=== PATIENT | male | born 1975 | race Caucasian/White ===

== ENCOUNTER 2023-11-20 15:03 | Emergency (ER) | payer OTHER, SELFPAY ==
[2023-11-20 15:04] VITALS: BP 125/58; PULSE 96; RESP 20; TEMP 36.4; O2SAT 96; BMI 29.1
[2023-11-20 15:55] LABS: Absolute Lymphocyte Count 2.07 X10^3/uL (0.83-4.51); Absolute Neutrophil Count 7.2 X10^3/uL (2.0-7.7); Basophil# 0.08 X10^3/uL; Basophil% 0.8 % (0-1); Eosinophil# 0.53 X10^3/uL; Hematocrit 26.9 % (40-54); Hemoglobin 8.2 g/dL (13.0-16.5); Lymphocyte # 2.07 X10^3/ul (0.83-4.51); Lymphocyte % 19.5 % (19-41); Mean Corp Hgb Conc 30.5 g/dL (32-36); Mean Corpuscular Hgb 24.6 pg (27.0-32.0); Mean Corpuscular Volume 80.8 fL (80-94); Mean Platelet Vol. 9.6 fl (6.2-12.0); Monocyte# 0.72 X10^3/uL; Monocyte% 6.8 % (0-10); NRBC Flagged by Analyzer 0 % (0-5); Neutrophil # 7.19 X10^3/uL (2.7-7.7); Neutrophil % 67.4 % (47-70); Platelet Count 418 K/mm3 (150-450); RBC Distribution Width CV 18.3 % (11.6-14.6); RBC Distribution Width SD 53.1 fl (35.1-43.9); Red Blood Count 3.33 M/mm3 (4.6-6.2); White Blood Count 10.6 K/mm3 (4.4-11.0)
[2023-11-20 16:18] LABS: ALB/GLOB Ratio 0.8 RATIO (0.9-2.4); AST(SGOT) 10 U/L (15-37); Alanine Aminotransfer ALT/SGPT 18 U/L (16-61); Alkaline Phosphatase 70 U/L (45-117); Anion Gap 8 (5-15); BUN 18 mg/dL (7-18); Calcium,Total 8.8 mg/dL (8.5-10.1); Chloride 104 mmol/L (98-107); Creatinine, Serum 0.78 mg/dL (0.70-1.30); EST Glomerular Filtration Rate 111 mL/min (>60); Est Glom Filt Rate - Afr Amer 135 mL/min (>60); Estimated Creatinine Clearance 129.29 ml/min; Globulin 3.7 g/dL (2.2-4.2); Glucose 121 mg/dL (74-106); Potassium 3.7 mmol/L (3.5-5.1); Protein, Total 6.7 g/dL (6.4-8.2); Sodium Level 138 mmol/L (136-145)
[2023-11-20 17:04] VITALS: PULSE 89; RESP 16; O2SAT 97
[2023-11-20 17:26] LABS: Lipase 25 U/L (13-75)
[2023-11-20 17:38] LABS: Mucous, Urine 0 SEEN /hpf (<or=2+)
[2023-11-20 17:40] LABS: Color, Urine Straw (Yellow); Glucose, Dipstick Normal (Normal); Ketone-Dipstick 5 mg/dl (Negative); Leukocyte Esterase-Dipstick Negative /ul (Negative); Nitrite-Dipstick Negative (Negative); Occult Blood-Urine 25 /ul (Negative); Protein-Dipstick 15 mg/dl (Negative); Urine Bilirubin Dipstick Negative (Negative); Urine Clarity Clear (Clear); Urine Urobilinogen Normal (Normal)
[2023-11-20] MEDS: 0.9% Normal Saline (1000mL) 1,000 ML 200 ML IV (17:49)
[2023-11-20] MEDS: Acetaminophen 325 MG Tablet 650 MG PO (17:49)
--- NOTE | 2023-11-20 17:51 | CT_ITS ---
EXAM: CT ABDOMEN AND PELVIS WITH INTRAVENOUS CONTRAST CLINICAL INDICATION: abdominal pain, prior CT with duodenal colonic TECHNIQUE: Helically acquired images were obtained of the abdomen and pelvis with intravenous contrast. This CT exam was performed using one or more of the following dose reduction techniques: automated exposure control, adjustment of the mA and/or kV according to patient size, and/or use of iterative reconstruction technique. CONTRAST: Oral and amp; IV Gastrografin and amp; 100mL Isovue-370 COMPARISON: No relevant prior studies available. FINDINGS: LOWER THORAX: Unremarkable. Lung bases are clear. No cardiomegaly. No significant pericardial effusion. ABDOMEN: LIVER: Unremarkable. Homogeneous. No focal mass. GALLBLADDER AND BILE DUCTS: Unremarkable. No calcified gallstones. No gallbladder distention or wall edema. No intra- or extrahepatic biliary ductal dilation. PANCREAS: Unremarkable. No focal cystic or solid mass. SPLEEN: Unremarkable. Normal size without focal cystic or solid mass. ADRENALS: Unremarkable. No nodules. KIDNEYS AND URETERS: There is a 1.3 cm stone in the right renal pelvis. There is mild right-sided foraminal stenosis. Normal renal size and position. No hydronephrosis. STOMACH AND BOWEL: There is marked inflammation and thickening of the wall of the descending duodenum. 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 There is also possible there is an underlying mass involves. There is no free air identified. No stomach or bowel distention. PELVIS: APPENDIX: No evidence of acute appendicitis. BLADDER: Unremarkable. REPRODUCTIVE: Unremarkable as visualized. No mass. ABDOMEN and PELVIS: INTRAPERITONEAL SPACE: See above. BONES/JOINTS: See above. SOFT TISSUES: Unremarkable. No discrete abdominal or pelvic wall hernia. VASCULATURE: Unremarkable. Abdominal aorta is non-dilated. LYMPH NODES: Unremarkable. No enlarged lymph nodes. CT/Abdomen/Pelvis WITH Contrast IMPRESSION: 1. Inflammation and thickening the wall of the descending duodenum. The inflamed duodenum abuts against the adjacent hepatic flexure of the colon with an apparent duodenal colic fistula. Underlying mass lesion is also a possibility. There is no free air identified. Further evaluation with either upper endoscopy or colonoscopy is recommended. 2. Obstruction right collecting system due to a 1.3 cm stone in the right renal pelvis. There is right-sided hydronephrosis. Electronically Signed: Armani Goldberg MD at 20:22 EDT ,
[2023-11-20 17:59] LABS: Erythrocyte Sedimentation Rate 29 mm/hr (0-20)
[2023-11-20 18:08] LABS: Bacteria 2+ /hpf (None Seen); Red Blood Cells-Urine 0-5 SEEN /hpf (0-5); Renal Epithelial Cells 0-5 SEEN /hpf (0-5); Squamous Epithelial Cells - UA 0-5 SEEN /hpf (0-5); White Blood Cells 0-5 SEEN /hpf (0-5)
--- NOTE | 2023-11-20 19:54 | ED.VIS.GI ---
HPI HPI - GI History of Present Illness Chief Complaint: Abd Pain Informant: patient Narrative Narrative: Patient is a 48-year-old male with history of hypertension and acc-[id number] diabetes mellitus presenting with abdominal discomfort, nausea, vomiting and diarrhea. Patient states had a cholecystectomy last month with Dr. Shipley at [facility]. He states after that he had issues of abdominal pain and had CT on 10/26 and 10/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 Patient brought in the CT report. Patient did not follow-up and is not entirely clear why. He states the surgeon states that that was too much for him to handle. Patient states he is doing okay for the past 2 weeks and having decreased bowel movements and been more gassy. Yesterday he had a go-cart and then afterwards had an episode of vomiting around 1 PM. Throughout the day today, he has had belching that has had a sulfur smell. He later then had a bowel movement that felt like sulfur. He has been very gassy. Notes his subsequent gas and bowel movements were not sulfur smelling. Denies any fever or chills. Has had some mild lower abdominal pain that radiates to his back. States he has been taking Tylenol and ibuprofen for the past few days for his back pain. This seems to help. Notes that he will like he has heartburn and took Maalox for that which also helped. No other complaints or concerns reported at this time [facility] Medical History Diabetes HTN (hypertension) Umbilical hernia Fistula Home Medications ?Medication ?Instructions ?Recorded ?Last Taken ?Type aspirin 81 mg tablet,delayed 81 mg PO DAILY 11/20/23 11/19/23 History release (Adult Aspirin Regimen) lisinopril 10 mg tablet 10 mg PO DAILY 11/20/23 11/20/23 History metformin 1,000 mg tablet 500 mg PO BID 11/20/23 11/20/23 History Allergy/AdvReac Type Severity Reaction Status Date / Time No Known Allergies Allergy Verified 11/20/23 15:06 Surgical History Hx of cholecystectomy Social History household members: family housing: house Smoking Status: Current every day smoker tobacco type: cigarettes ROS ROS ED Constitutional Constitutional ED: Denies chills or fever(s) Gastrointestinal Gastrointestinal: Reports abdominal pain, diarrhea, nausea and vomiting; Denies constipation or melena Genitourinary Genitourinary ED: Denies dysuria or urinary frequency Musculoskeletal Musculoskeletal: Reports back pain; Denies arthralgias Integumentary Denies rash Neurologic Neurologic: Denies headache(s) Hematologic/Lymphatic Hematologic/Lymphatic: Denies easy bleeding or easy bruising EXAM Physical Exam Const Vital Signs: 11/20/23 15:04 11/20/23 17:04 11/20/23 20:01 Temperature 97.6 F L Temperature Source Temporal Pulse Rate 96 89 73 Respiratory Rate 20 H 16 18 Blood Pressure 125/58 H 131/67 H Blood Pressure Mean 80 88 Pulse Ox 96 97 97 Oxygen Delivery Method Room Air Room Air 11/20/23 22:05 Temperature Temperature Source Pulse Rate 67 Respiratory Rate 18 Blood Pressure 128/72 H Blood Pressure Mean 90 Pulse Ox 98 Oxygen Delivery Method Room Air Positive well nourished and well developed General Appearance ED: well developed and NAD HEENT Reports moist mucous membranes Neck supple Resp normal respiratory effort and clear to auscultation bilaterally Cardio regular rate and regular rhythm GI non-distended GI Narrative: Healing laparoscopic surgical incision sites very mild tenderness in the lower abdomen. No specific tenderness in the right upper quadrant or upper abdomen. Auscultation: normoactive bowel sounds Palpation: soft and tender; Negative for guarding, rigid or rebound tenderness present Back/Spine no CVA tenderness Extremity full ROM Neuro Sensorium / Orientation: alert, oriented to person, oriented to place and oriented to time Motor Exam: Negative for general weakness Psych mental status grossly normal and thought process normal Skin Skin Narrative: Surgical incisions of the abdomen, no signs of secondary infection or drainage MDM MDM MDM Narrative Medical decision making narrative: Patient evaluated for episode of nausea, vomiting and diarrhea as well as some worsening right back pain. Patient points to his right CVA area as the area of pain but it is not reproducible. Patient had outpatient CT recently that showed duodenal colonic fistula but it does not seem to have been referred or worked up further. Spoke with surgery on-call, Dr. Bhat, he recommends CT with p.o. contrast. This is performed and obtain labs including inflammatory markers. Patient has microcytic anemia of uncertain origin although concern is he could have bleeding in his GI track/neoplastic process. White blood cell count is normal. ESR and CRP are mildly elevated. CMP otherwise largely normal. Urine culture sent however I suspect is contaminated as there is 2+ bacteria but 0-5 squamous epithelial cells and 0-5 renal epithelial cells with no leukocyte esterase or significant white blood cells. CT does in fact show inflammation and thickening of the wall of the descending duodenum blood what looks to be fistula. In addition there is a 1.3 cm stone of the right renal pelvis. I suspect this is the cause of his back pain. We do not currently have urology coverage and surgery feels that this mass/fistula needs a higher level of care than we can provide. Patient will be transferred to [facility]. Case discussed with surgery on-call, Dr. Campbell and he patient will go to the ER for further evaluation and final admission. Patient is agreeable this plan of care. Patient now resting comfortably. Patient informed of findings. Lab Data Attestation: I reviewed the patient's lab results. Labs: Laboratory Results - last 24 hr 11/20/23 11/20/23 11/20/23 15:30 15:50 17:34 WBC 10.6 RBC 3.33 L Hgb 8.2 L Hct 26.9 L MCV 80.8 MCH 24.6 L MCHC 30.5 L RDW Std Deviation 53.1 H RDW Coeff of Brenden 18.3 H Plt Count 418 MPV 9.6 Immature Gran % (Auto) 0.500 Neut % (Auto) 67.4 Lymph % (Auto) 19.5 Harmon % (Auto) 6.8 Eos % (Auto) 5.0 Baso % (Auto) 0.8 Absolute Neuts (auto) 7.2 Absolute Lymphs (auto) 2.07 Nucleated RBC % 0 ESR 29 H Sodium 138 Potassium 3.7 Chloride 104 Carbon Dioxide 26.0 Anion Gap 8 BUN 18 Creatinine 0.78 Estim Creat Clear Calc 129.29 Est GFR (MDRD) Af Amer 135 Est GFR (MDRD) Non-Af 111 BUN/Creatinine Ratio 23.0 H Glucose 121 H Calcium 8.8 Total Bilirubin 0.30 AST 10 L ALT 18 Alkaline Phosphatase 70 C-React Prot Ext Range 21.40 H Total Protein 6.7 Albumin 3.0 L Globulin 3.7 Albumin/Globulin Ratio 0.8 L Lipase 25 Urine Color Straw Urine Clarity Clear Urine pH 6.0 Ur Specific Emmet 1.010 Urine Protein 15 H Urine Glucose (UA) Normal Urine Ketones 5 H Urine Occult Blood 25 H Urine Nitrite Negative Urine Bilirubin Negative Urine Urobilinogen Normal Ur Leukocyte Esterase Negative Urine RBC 0-5 SEEN Urine WBC 0-5 SEEN Ur Squamous Epith Cells 0-5 SEEN Ur Renal Epithelial Cell 0-5 SEEN Urine Bacteria 2+ Urine Mucus 0 SEEN Radiography Diagnostic Testing: Clinical Impression(s) from Imaging Studies Abdomen/Pelvis CT 11/20/23 17:51 IMPRESSION: 1. Inflammation and thickening the wall of the descending duodenum. The inflamed duodenum abuts against the adjacent hepatic flexure of the colon with an apparent duodenal colic fistula. Underlying mass lesion is also a possibility. There is no free air identified. Further evaluation with either upper endoscopy or colonoscopy is recommended. 2. Obstruction right collecting system due to a 1.3 cm stone in the right renal pelvis. There is right-sided hydronephrosis. Electronically Signed: Armani Goldberg MD at 20:22 EDT , Management Discussion w/another healthcare provider: Electrician Second Discharge Plan Triage Chief Complaint: Abd Pain ED Provider: Dhara Lozano Dx/Rx/DC Orders Clinical Impression: Stone in renal pelvis, Colonic fistula, Anemia Prescriptions: No Action metformin 1,000 mg tablet 500 mg PO BID Patient Comments: JUST CUT DOSAGE BACK TO 1/2 TABLET TWICE DAILY lisinopril 10 mg tablet 10 mg PO DAILY aspirin [Adult Aspirin Regimen] 81 mg tablet,delayed release (DR/EC) 81 mg PO DAILY Primary Care Provider: Shawna Mccormick Referrals: Shawna Mccormick MD [Primary Care Provider] - Print Language: Upper Sorbian Disposition Disposition: Acute Care Hospital Discharge Location: [facility]
[2023-11-20 20:01] VITALS: BP 131/67; PULSE 73; RESP 18; O2SAT 97
[2023-11-20 22:05] VITALS: BP 128/72; PULSE 67; RESP 18; O2SAT 98
[2023-11-20 23:20] VITALS: BP 140/84; PULSE 82; RESP 18; O2SAT 98
[2023-11-21 00:40] VITALS: BP 140/84; PULSE 82; RESP 18; TEMP 36.6; O2SAT 98
== END 2023-11-21 00:45 | disposition short-term general hospital (02) ==
PROVIDERS: Emergency Provider Emergency Medicine; PCP Student in an Organized Health Care Education/Training Program; Visit Provider Emergency Medicine
DX: N13.2 Hydronephrosis with renal and ureteral calculous obstruction (principal); E11.9 Type 2 diabetes mellitus without complications; K63.2 Fistula of intestine; D64.9 Anemia, unspecified; I10 Essential (primary) hypertension; F17.210 Nicotine dependence, cigarettes, uncomplicated; Z90.49 Acquired absence of other specified parts of digestive tract; Z79.82 Long term (current) use of aspirin; Z79.84 Long term (current) use of oral hypoglycemic drugs; Z79.899 Other long term (current) drug therapy
CPT/HCPCS: 74177; 80053; 81001; 83690; 85025; 85652; 86140; 87077; 87086; 87088; 96360; 96361; 99284; J7030; Q9967; A4216

== ENCOUNTER → 2024-01-12 | Outpatient (CLI) | payer OTHER, SELFPAY ==
--- NOTE | 2024-01-12 18:00 | CT_ITS ---
EXAM: CT ABDOMEN AND PELVIS WITH INTRAVENOUS CONTRAST CLINICAL INDICATION: IV and p.o. contrast; abd pain, colon ca TECHNIQUE: Helically acquired images were obtained of the abdomen and pelvis with intravenous contrast. This CT exam was performed using one or more of the following dose reduction techniques: automated exposure control, adjustment of the mA and/or kV according to patient size, and/or use of iterative reconstruction technique. CONTRAST: Oral and amp;amp; IV Gastrografin and amp;amp; 100mL Isovue-370 COMPARISON: No relevant prior studies available. FINDINGS: LOWER THORAX: Unremarkable. Lung bases are clear. No cardiomegaly. No significant pericardial effusion. ABDOMEN: LIVER: There is narrowing of the lumen of the hepatic flecture with an apparent soft tissue mass suspicious for malignancy and measures roughly 4.9 x 5.3 cm. This abuts against the descending portion of the duodenum. There is no perforation or free air. Liver is diffusely decreased in attenuation compatible with fatty infiltration. GALLBLADDER AND BILE DUCTS: Unremarkable. No calcified gallstones. No gallbladder distention or wall edema. No intra- or extrahepatic biliary ductal dilation. PANCREAS: Unremarkable. No focal cystic or solid mass. SPLEEN: Unremarkable. Normal size without focal cystic or solid mass. ADRENALS: Unremarkable. No nodules. KIDNEYS AND URETERS: Unremarkable. Normal renal size and position. No hydronephrosis. STOMACH AND BOWEL: There are dilated bowel which may represent an ileus or developing obstruction. PELVIS: APPENDIX: No evidence of acute appendicitis. BLADDER: Unremarkable. REPRODUCTIVE: Unremarkable as visualized. No mass. ABDOMEN and PELVIS: INTRAPERITONEAL SPACE: Unremarkable. No ascites or other fluid collection. No free air. BONES/JOINTS: Unremarkable. No suspicious lytic or blastic abnormality. SOFT TISSUES: Unremarkable. No discrete abdominal or pelvic wall hernia. VASCULATURE: Unremarkable. Abdominal aorta is non-dilated. LYMPH NODES: Unremarkable. No enlarged lymph nodes. CT/Abdomen/Pelvis WITH Contrast IMPRESSION: 1. Narrowing of the bowel lumen with a soft tissue mass in the hepatic flexure of the colon compatible with malignancy. Further evaluation with colonoscopy may beneficial. 2. Dilated fluid-filled loops of bowel proximally which may represent an ileus or developing obstruction. Electronically Signed: Armani Goldberg MD at 19:16 EDT ,
== END | disposition home or self-care (01) ==
LOC: CT 18:00
PROVIDERS: PCP Student in an Organized Health Care Education/Training Program; Visit Provider Nurse Practitioner Family
DX: C18.2 Malignant neoplasm of ascending colon (principal); R10.9 Unspecified abdominal pain
CPT/HCPCS: 74177; Q9967; A4216

== ENCOUNTER 2024-02-15 20:43 | Observation (INO) | payer OTHER, SELFPAY ==
[2024-02-15 20:45] VITALS: BP 90/72; PULSE 111; RESP 18; TEMP 36.6; O2SAT 98; BMI 23.3
--- NOTE | 2024-02-15 22:17 | CT_ITS ---
EXAM: CT ABDOMEN AND PELVIS WITH INTRAVENOUS CONTRAST CLINICAL INDICATION: nausea, emesis, known colon cancer TECHNIQUE: Helically acquired images were obtained of the abdomen and pelvis with intravenous contrast. This CT exam was performed using one or more of the following dose reduction techniques: automated exposure control, adjustment of the mA and/or kV according to patient size, and/or use of iterative reconstruction technique. CONTRAST: IV 75mL Isovue-370 RADIATION DOSE: CTDIvol = 15.79 mGy, DLP = 842.61 mGy-cm COMPARISON: CT abdomen pelvis 01/12/2024 FINDINGS: LOWER THORAX: Tiny pleural effusions. No cardiomegaly. ABDOMEN: LIVER: Fatty infiltration of the liver. GALLBLADDER AND BILE DUCTS: Unremarkable. No calcified gallstones. No gallbladder distention or wall edema. No intra- or extrahepatic biliary ductal dilation. PANCREAS: Unremarkable. No focal cystic or solid mass. SPLEEN: Unremarkable. Normal size without focal cystic or solid mass. ADRENALS: Unremarkable. No nodules. KIDNEYS AND URETERS: Unremarkable. Normal renal size and position. No hydronephrosis. STOMACH AND BOWEL: Focal irregular wall thickening consistent with a history of colon cancer at the hepatic flexure of the colon, with a possible fistula connecting to the second portion of the duodenum. Some wall thickening/inflammation involving the distal small bowel. No stomach or bowel distention. PELVIS: APPENDIX: No evidence of acute appendicitis. BLADDER: Unremarkable. REPRODUCTIVE: Unremarkable as visualized. No mass. ABDOMEN and PELVIS: INTRAPERITONEAL SPACE: Small amount of free fluid in the pelvis. No free air. BONES/JOINTS: Degenerative changes of the spine. No suspicious lytic or blastic abnormality. SOFT TISSUES: Unremarkable. No discrete abdominal or pelvic wall hernia. VASCULATURE: Unremarkable. Abdominal aorta is non-dilated. LYMPH NODES: Unremarkable. No enlarged lymph nodes. CT/Abdomen/Pelvis W IV Cont ONLY IMPRESSION: 1. Focal irregular wall thickening consistent with the history of colon cancer at the hepatic flexure of the colon, with a possible fistula connecting to the second portion of the duodenum. 2. Some wall thickening/inflammation involving the distal small bowel. This may indicate an infectious or inflammatory enteritis. 3. Tiny pleural effusions. 4. Fatty infiltration of the liver. Electronically Signed: Omar Felix MD at 0:19 EDT ,
--- NOTE | 2024-02-15 22:22 | EX.ED.GENINJ ---
HPI History of Present Illness Chief Complaint: Nausea/Vomiting Narrative Narrative: Chief complaint and HPI: Nausea and vomiting. 48-year-old male with history of colon cancer on chemotherapy presents for evaluation of nausea and vomiting. Patient states he is on his 6 cycle of chemotherapy. He states his last chemotherapy was 2 weeks ago. Patient states he follows with the cancer center here. His surgeon for his cancer is at [facility]. Patient states he has had nausea and vomiting for the past week. He has tried Zofran with little relief. He states he cannot eat and drink secondary to the nausea and vomiting. He is supposed to be on a soft diet. Patient states he went to the ED in [place] in which she was given IV fluids and discharged home. Patient states his symptoms have not improved. He endorses abdominal bloating but denies any pain. He states he has a slight cough. He denies any fever, chills, URI symptoms, chest pain, shortness of breath, diarrhea, dysuria, hematuria. He does state that he has had some constipation. Review of systems: See HPI Medications: As listed on the chart Allergies: As listed on the chart PFSH: Per chart Vital signs: As listed on the chart. Reviewed. Physical exam: Gen: A&O x3, NAD Head: Normocephalic, atraumatic Eyes: No sclera icterus, conjunctiva clear ENT: Dry mucous membranes Neck: Trachea midline, No JVD CV: Tachycardic, regular rate, no murmurs, no peripheral edema Resp: Lungs CTA BL, no w/r/c GI: Abd soft, non-distended, non-tender, no r/r/g Musc: Full ROM, no deformity Skin: Warm, dry Neuro: Alert, oriented, grossly intact, sensation intact Psych: Cooperative, appropriate mood and affect [facility] Medical History (Updated 02/04/24 @ 11:27 by Nicolasa Walton RADIATION ONCOLOGY MANAGER, RADIATION ONCOLOGY MANAGER-C) Malnutrition Hypokalemia Abdominal pain Hypotension CINV (chemotherapy-induced nausea and vomiting) Acid reflux Encounter for education Iron deficiency anemia Abnormal colonoscopy Port-A-Cath in place Colon cancer Diabetes HTN (hypertension) Umbilical hernia Fistula Home Medications ?Medication ?Instructions ?Recorded ?Last Taken ?Type lidocaine 4 % topical patch 1 patch topical DAILY PRN 12/01/23 Unknown History (AsperFlex (lidocaine)) lidocaine-prilocaine 2.5 %-2.5 % 1 applic topical ONCE PRN port 12/03/23 Unknown Rx topical cream access 30 days #30 grams ondansetron 4 mg disintegrating 4 mg PO Q8H PRN nausea and 12/03/23 Unknown Rx tablet vomiting #30 tabs prochlorperazine maleate 10 mg 10 mg PO Q6H PRN nausea and 12/24/23 Unknown Rx tablet vomiting #30 tabs ondansetron 8 mg disintegrating 8 mg PO Q8H PRN nausea and 02/02/24 Unknown Rx tablet vomiting #30 tabs pantoprazole 20 mg tablet,delayed 20 mg PO QDAY #30 tabs 02/02/24 Unknown Rx release tramadol 50 mg tablet 50 mg PO QDAY PRN pain 02/02/24 Unknown History Allergy/AdvReac Type Severity Reaction Status Date / Time No Known Allergies Allergy Verified 02/15/24 20:45 Family History Uncle Cancer Father Cancer renal Heart disease Surgical History H/O hernia repair H/O right knee surgery History of esophagogastroduodenoscopy (EGD) Hx of cholecystectomy Social History household members: family housing: house Smoking Status: Current every day smoker tobacco type: cigarettes Tobacco: How many years used: 30 alcohol intake: never substance use type: does not use EXAM Physical Exam Const Vital Signs: 02/15/24 20:45 02/15/24 22:44 02/16/24 00:00 Temperature 98 F Temperature Source Oral Pulse Rate 111 H 83 81 Respiratory Rate 18 16 16 Blood Pressure 90/72 126/86 H 122/84 H Blood Pressure Mean 78 99 96 Pulse Ox 98 98 97 Oxygen Delivery Method Room Air Room Air Room Air 02/16/24 00:45 Temperature 97.8 F Temperature Source Pulse Rate 89 Respiratory Rate 16 Blood Pressure 120/87 H Blood Pressure Mean 98 Pulse Ox 97 Oxygen Delivery Method MDM MDM MDM Narrative Medical decision making narrative: 48-year-old male with history of colon cancer on chemotherapy presents for evaluation of nausea and vomiting. Differential diagnosis includes but is not limited to chemotherapy induced nausea and vomiting, ALEX, electrolyte abnormality, obstruction, UTI, viral illness. NS bolus, Reglan ordered for symptoms. Laboratory workup ordered. On presentation, patient is tachycardic with blood pressure of 90/72. This is likely secondary to dehydration. CMP without ALEX. Patient has baseline elevated alk phos at 168. Mild elevation in ALT at 73. Lactic acid unremarkable. Patient is malnourished with an albumin level of 1.4. Lipase unremarkable. CBC with leukopenia of 1.6 he is on chemotherapy. Baseline anemia. COVID, flu, RSV negative. Patient's blood pressure CT abdomen pelvis shows focal irregular wall thickening consistent with a history of colon cancer at the hepatic flexure of the colon. Possible fistula connection to the second portion of duodenum. Patient has some mild wall thickening/inflammation involving the distal small bowel this may indicate infectious or inflammatory enteritis. I did review previous CT abdomen pelvis patient also had mild wall thickening of the small bowel at that time. This may be secondary to his chemotherapy as well as cancer. Given patient is malnourished, dehydrated, and feeling outpatient therapy I feel that patient would benefit from admission for continued hydration. Patient was updated of all his results. He states that he does not feel comfortable discharging home as well as he cannot eat and drink and this is the second time he has been to the hospital. I do believe this is appropriate. Patient was discussed with Dr. Castro who accepted admission. EKG: Interpreted by me/EM physician: EKG shows normal sinus rhythm with PACs. No ST elevation. Heart rate 88. I do not have previous EKG to compare to. Diagnostic: Interpreted by me/EM physician: Chest x-ray without pneumonia, effusion, cardiomegaly, pneumothorax. Lab Data Labs: Laboratory Results - last 24 hr 02/15/24 22:50 WBC 1.6 L RBC 4.36 L Hgb 11.3 L Hct 35.6 L MCV 81.7 MCH 25.9 L MCHC 31.7 L RDW Std Deviation 67.1 H RDW Coeff of Brenden 23.3 H Plt Count 184 MPV 10.7 Neut % (Auto) Not Reportable Absolute Neuts (auto) 0.6 L Absolute Lymphs (auto) 0.51 L Total Counted 50 Neutrophils % (Manual) 36 L Lymphocytes % (Manual) 32 Monocytes % (Manual) 26 H Myelocytes % 2 H Other Cells % 4 Diff Path Review May foll Platelet Estimate SLT DEC Polychromasia 1+ Hypochromasia 1+ Anisocytosis 1+ Target Cells 1+ Tear Drop Cells 1+ Ovalocytes 1+ Bite Cells 1+ Sodium 139 Potassium 4.1 Chloride 106 Carbon Dioxide 27.0 Anion Gap 7 BUN 21 H Creatinine 0.93 Estim Creat Clear Calc 98.12 Est GFR (MDRD) Af Amer 110 Est GFR (MDRD) Non-Af 91 BUN/Creatinine Ratio 22.6 H Glucose 88 Lactic Acid 1.4 Calcium 8.0 L Total Bilirubin 0.90 AST 22 ALT 73 H Alkaline Phosphatase 168 H Troponin I High Sens 50 Total Protein 4.2 L Albumin 1.4 L Globulin 2.8 Albumin/Globulin Ratio 0.5 L Lipase < 10 L Radiography Diagnostic Testing: Clinical Impression(s) from Imaging Studies Abdomen/Pelvis CT 02/15/24 22:17 IMPRESSION: 1. Focal irregular wall thickening consistent with the history of colon cancer at the hepatic flexure of the colon, with a possible fistula connecting to the second portion of the duodenum. 2. Some wall thickening/inflammation involving the distal small bowel. This may indicate an infectious or inflammatory enteritis. 3. Tiny pleural effusions. 4. Fatty infiltration of the liver. Electronically Signed: Omar Felix MD at 0:19 EDT , Chest X-Ray 02/15/24 23:23 IMPRESSION: No acute findings in the chest. Electronically Signed: Omar Felix MD at 0:01 EDT , Discharge Plan Triage Chief Complaint: Nausea/Vomiting ED Provider: Chemo Mendez Dx/Rx/DC Orders Prescriptions: No Action lidocaine [AsperFlex (lidocaine)] 4 % adhesive patch,medicated 1 patch topical DAILY PRN lidocaine-prilocaine 2.5-2.5 % cream 1 applic topical ONCE PRN (Reason: port access) 30 Days Qty: 30 2RF ondansetron 4 mg tablet,disintegrating 4 mg PO Q8H PRN (Reason: nausea and vomiting) Qty: 30 0RF prochlorperazine maleate 10 mg tablet 10 mg PO Q6H PRN (Reason: nausea and vomiting) Qty: 30 2RF tramadol 50 mg tablet 50 mg PO QDAY PRN (Reason: pain) pantoprazole 20 mg tablet,delayed release (DR/EC) 20 mg PO QDAY Qty: 30 0RF ondansetron 8 mg tablet,disintegrating 8 mg PO Q8H PRN (Reason: nausea and vomiting) Qty: 30 2RF Primary Care Provider: Shawna Mccormick Referrals: Shawna Mccormick MD [Primary Care Provider] - Print Language: Korean
[2024-02-15 22:44] VITALS: BP 126/86; PULSE 83; RESP 16; O2SAT 98
[2024-02-15] MEDS: Metoclopramide 10 MG/2 ML Vial 5 MG IV (22:47)
[2024-02-15] MEDS: 0.9% Normal Saline (1000mL) 1,000 ML 1000 ML IV (22:47)
[2024-02-15 22:58] LABS: Hematocrit 35.6 % (40-54); Hemoglobin 11.3 g/dL (13.0-16.5); Mean Corp Hgb Conc 31.7 g/dL (32-36); Mean Corpuscular Hgb 25.9 pg (27.0-32.0); Mean Corpuscular Volume 81.7 fL (80-94); Mean Platelet Vol. 10.7 fl (6.2-12.0); POSITIVE COUNT YES; POSITIVE DIFFERENTIAL YES; POSITIVE MORPHOLOGY YES; Platelet Count 184 K/mm3 (150-450); RBC Distribution Width CV 23.3 % (11.6-14.6); RBC Distribution Width SD 67.1 fl (35.1-43.9); Red Blood Count 4.36 M/mm3 (4.6-6.2); White Blood Count 1.6 K/mm3 (4.4-11.0)
[2024-02-15 23:21] LABS: Lactic Acid 1.4 mmol/L (0.4-1.9)
[2024-02-15 23:22] LABS: ALB/GLOB Ratio 0.5 RATIO (0.9-2.4); AST(SGOT) 22 U/L (15-37); Alanine Aminotransfer ALT/SGPT 73 U/L (16-61); Albumin, Serum 1.4 g/dL (3.2-5.0); Alkaline Phosphatase 168 U/L (45-117); Anion Gap 7 (5-15); BUN 21 mg/dL (7-18); BUN/Creat Ratio 22.6 RATIO (10-20); Chloride 106 mmol/L (98-107); Creatinine, Serum 0.93 mg/dL (0.70-1.30); EST Glomerular Filtration Rate 91 mL/min (>60); Est Glom Filt Rate - Afr Amer 110 mL/min (>60); Estimated Creatinine Clearance 98.12 ml/min; Globulin 2.8 g/dL (2.2-4.2); Glucose 88 mg/dL (74-106); Lipase < 10 U/L (13-75); Potassium 4.1 mmol/L (3.5-5.1); Protein, Total 4.2 g/dL (6.4-8.2); Sodium Level 139 mmol/L (136-145); Troponin-I HS 50 pg/mL (3.0-78.0)
--- NOTE | 2024-02-15 23:23 | RAD_ITS ---
EXAM: XR CHEST, 2 VIEWS CLINICAL INDICATION: cough TECHNIQUE: Frontal and lateral views of the chest. COMPARISON: Abdominal series 01/19/2024 FINDINGS: LUNGS AND PLEURAL SPACES: Unremarkable. No consolidation or edema. No pneumothorax. No effusion. HEART: Unremarkable. Cardiac silhouette not enlarged. MEDIASTINUM: Central airways and mediastinal contour are unremarkable. BONES/JOINTS: Unremarkable. No acute fracture. SOFT TISSUES: Unremarkable. TUBES, LINES AND DEVICES: Right chest port. RAD/Chest PA and Lateral IMPRESSION: No acute findings in the chest. Electronically Signed: Omar Felix MD at 0:01 EDT ,
[2024-02-15 23:25] LABS: Differential Indicated MANUAL DIFF
[2024-02-15 23:36] LABS: Lymphocyte 32 % (19-41); Monocyte 26 % (0-10); Myelocyte 2 % (0-0); Neutrophil-Segmented 36 % (47-70); Other WBC Type 4 %; Total Cells Counted 50 (MANUAL DIFF)
[2024-02-15 23:39] LABS: Anisocytosis 1+; Platelet Estimate SLT DEC (ADEQ)
[2024-02-15 23:40] LABS: Hypochromasia 1+; Polychromasia 1+
[2024-02-15 23:41] LABS: Absolute Neutrophil Count 0.6 X10^3/uL (2.0-7.7); Bite Cell 1+; Ovalocyte 1+; Target Cells 1+; Tear Drop Cell 1+
[2024-02-15 23:42] LABS: Absolute Lymphocyte Count 0.51 X10^3/uL (0.83-4.51)
[2024-02-16] VITALS (8 sets, daily range): BP systolic 92–137; BP diastolic 60–87; PULSE 81–102; RESP 13–18; TEMP 36.6–37.7; O2SAT 95–99; BMI 23.1
--- NOTE | 2024-02-16 00:55 | HP.PCM_ITS ---
HPI - General General Date of Admission: 02/16/24 Date of Service: 02/16/24 Chief Complaint: Nausea and vomiting HPI Narrative GIBSON CARRANZA, is a 48 M who presents to the emergency room with chief complaint of nausea and vomiting. Patient has a significant past medical history of colon cancer for which she has received 6 rounds of chemotherapy prior to having surgery. He is due to have another round of chemotherapy tomorrow by Dr. Caruso. Patient reports being unable to tolerate anything by p.o. either liquid or solid food. He was seen earlier in the emergency room in [place] given IV fluids and discharged but has returned to our facility with the same complaint. Patient denies any fever or chills present time he does have generalized abdominal pain with nausea and vomiting. CT scan reveals inflammation in the colon at the hepatic flexure consistent with his neoplastic process. White blood cell count shows a leukopenia. Patient is tolerated ondansetron and IV fluids in the emergency room and will be admitted for observation for overnight hydration and Dr. Gallego consulted as he was to get chemotherapy in the morning at 8:00 at an outpatient IV infusion center. [facility] Medical History (Updated 02/04/24 @ 11:27 by Nicolasa Walton DESIGN QUALITY ENGINEER, DESIGN QUALITY ENGINEER-C) Malnutrition Hypokalemia Abdominal pain Hypotension CINV (chemotherapy-induced nausea and vomiting) Acid reflux Encounter for education Iron deficiency anemia Abnormal colonoscopy Port-A-Cath in place Colon cancer Diabetes HTN (hypertension) Umbilical hernia Fistula Home Medications ?Medication ?Instructions ?Recorded ?Last Taken ?Type lidocaine 4 % topical patch 1 patch topical DAILY PRN 12/01/23 Unknown History (AsperFlex (lidocaine)) lidocaine-prilocaine 2.5 %-2.5 % 1 applic topical ONCE PRN port 12/03/23 Unknown Rx topical cream access 30 days #30 grams ondansetron 4 mg disintegrating 4 mg PO Q8H PRN nausea and 12/03/23 Unknown Rx tablet vomiting #30 tabs prochlorperazine maleate 10 mg 10 mg PO Q6H PRN nausea and 12/24/23 Unknown Rx tablet vomiting #30 tabs ondansetron 8 mg disintegrating 8 mg PO Q8H PRN nausea and 02/02/24 Unknown Rx tablet vomiting #30 tabs pantoprazole 20 mg tablet,delayed 20 mg PO QDAY #30 tabs 02/02/24 Unknown Rx release tramadol 50 mg tablet 50 mg PO QDAY PRN pain 02/02/24 Unknown History Allergy/AdvReac Type Severity Reaction Status Date / Time No Known Allergies Allergy Verified 02/15/24 20:45 Family History Uncle Cancer Father Cancer renal Heart disease Surgical History H/O hernia repair H/O right knee surgery History of esophagogastroduodenoscopy (EGD) Hx of cholecystectomy Social History household members: family housing: house Smoking Status: Current every day smoker tobacco type: cigarettes Tobacco: How many years used: 30 alcohol intake: never substance use type: does not use ROS Constitutional Constitutional: Denies chills or fever(s) Eyes Eyes: Denies blurry vision ENT HEENT: Denies abnormal hearing Respiratory/Chest Respiratory/Chest: Denies shortness of breath at rest Gastrointestinal Gastrointestinal: Reports abdominal pain, nausea and vomiting Genitourinary Genitourinary: Denies dysuria Musculoskeletal Musculoskeletal: Denies back pain Integumentary Integumentary: Reports dry skin Neurologic Neurologic: Denies abnormal gait Psychiatric Psychiatric: Denies anxiety Vital Signs Vital Signs Vital Signs: 02/15/24 20:45 02/15/24 22:44 02/16/24 00:00 Temperature 98 F Temperature Source Oral Pulse Rate 111 H 83 81 Respiratory Rate 18 16 16 Blood Pressure 90/72 126/86 H 122/84 H Blood Pressure Mean 78 99 96 Pulse Ox 98 98 97 Oxygen Delivery Method Room Air Room Air Room Air 02/16/24 00:45 Temperature 97.8 F Temperature Source Pulse Rate 89 Respiratory Rate 16 Blood Pressure 120/87 H Blood Pressure Mean 98 Pulse Ox 97 Oxygen Delivery Method Weight Weight: 162 lb 14.4 oz Body Mass Index (BMI) 23.3 Physical Exam Const oriented x3 General Appearance: cooperative HEENT normocephalic and head/scalp atraumatic Neck no lymphadenopathy Lymph Lymphatic: no lymphadenopathy noted Resp normal respiratory effort, normal air movement and clear to auscultation bilaterally Cardio regular rate, regular rhythm, S1 normal heart sound and S2 normal heart sound GI Inspection: Negative for abdominal distention Palpation: tender LUQ; Negative for guarding or rigid Extremity normal capillary refill General Extremity: Negative for edema Skin General Skin Exam: no breakdown Neuro no focal motor deficits and no sensory deficits noted Results Lab / Micro Data 02/15/24 22:50 02/15/24 22:50 Labs: Laboratory Results - last 24 hr 02/15/24 22:50: WBC 1.6 L, RBC 4.36 L, Hgb 11.3 L, Hct 35.6 L, MCV 81.7, MCH 25.9 L, MCHC 31.7 L, RDW Std Deviation 67.1 H, RDW Coeff of Brenden 23.3 H, Plt Count 184, MPV 10.7, Neut % (Auto) Not Reportable, Absolute Neuts (auto) 0.6 L, Absolute Lymphs (auto) 0.51 L, Total Counted 50, Neutrophils % (Manual) 36 L, Lymphocytes % (Manual) 32, Monocytes % (Manual) 26 H, Myelocytes % 2 H, Other Cells % 4, Diff Path Review May foll, Platelet Estimate SLT DEC, Polychromasia 1+, Hypochromasia 1+, Anisocytosis 1+, Target Cells 1+, Tear Drop Cells 1+, Ovalocytes 1+, Bite Cells 1+, Sodium 139, Potassium 4.1, Chloride 106, Carbon Dioxide 27.0, Anion Gap 7, BUN 21 H, Creatinine 0.93, Estim Creat Clear Calc 98.12, Est GFR (MDRD) Af Amer 110, Est GFR (MDRD) Non-Af 91, BUN/Creatinine Ratio 22.6 H, Glucose 88, Lactic Acid 1.4, Calcium 8.0 L, Total Bilirubin 0.90, AST 22, ALT 73 H, Alkaline Phosphatase 168 H, Troponin I High Sens 50, Total Protein 4.2 L, Albumin 1.4 L, Globulin 2.8, Albumin/Globulin Ratio 0.5 L, Lipase < 10 L Micro: Microbiology 02/15/24 22:49 Mucosa - Nose SARS-CoV-2, Influenza & RSV (PCR) - Final Imaging Radiology Impression Abdomen/Pelvis CT 02/15/24 22:17 IMPRESSION: 1. Focal irregular wall thickening consistent with the history of colon cancer at the hepatic flexure of the colon, with a possible fistula connecting to the second portion of the duodenum. 2. Some wall thickening/inflammation involving the distal small bowel. This may indicate an infectious or inflammatory enteritis. 3. Tiny pleural effusions. 4. Fatty infiltration of the liver. Electronically Signed: Omar Felix MD at 0:19 EDT , Chest X-Ray 02/15/24 23:23 IMPRESSION: No acute findings in the chest. Electronically Signed: Omar Felix MD at 0:01 EDT , Assessment & Plan Assessment/Plan (1) Vomiting: QUALIFIERS: Vomiting type: unspecified Nausea presence: u nspecified Qualified Code(s): R11.10 - Vomiting, unspecified (2) Colon cancer: QUALIFIERS: Colon location: ascending Qualified Code(s): C18.2 - Malignant neoplasm of ascending colon (3) Hypokalemia: PLAN: Plan 1 intractable nausea and vomiting?admit patient to observation general medical floor. IV normal saline at a rate of 100 cc/h. Repeat CBC CMP in the morning. Had ondansetron 8 mg IV Q6 as needed nausea. 2. History of colon cancer?due for chemotherapy tomorrow?will consult Dr. Caruso to make aware the patient is inpatient at this time 3. Hypokalemia?replaced potassium and and repeat metabolic panel in the morning 4. DVT prophylaxis?low molecular weight heparin Charges/Coding Visit Charges OBSV E&M: 42396 Observ/hosp same date L2
[2024-02-16 01:26] LABS: Troponin-I HS 55 pg/mL (3.0-78.0)
[2024-02-16] MEDS: 0.9% Normal Saline (1000mL) 1,000 ML 100 ML IV (02:20)
[2024-02-16] MEDS: Ondansetron 8 MG Tablet PO (02:23)
[2024-02-16] MEDS: proCHLORPERazine 5 MG Tablet 10 MG PO (06:22)
[2024-02-16 06:47] LABS: Absolute Lymphocyte Count 1.23 X10^3/uL (0.83-4.51); Absolute Neutrophil Count 0.5 X10^3/uL (2.0-7.7); Basophil# 0.01 X10^3/uL; Basophil% 0.4 % (0-1); Hematocrit 31.8 % (40-54); Hemoglobin 10.1 g/dL (13.0-16.5); Lymphocyte # 1.23 X10^3/ul (0.83-4.51); Lymphocyte % 52.8 % (19-41); Mean Corp Hgb Conc 31.8 g/dL (32-36); Mean Corpuscular Hgb 26.4 pg (27.0-32.0); Mean Platelet Vol. 10.6 fl (6.2-12.0); Monocyte# 0.54 X10^3/uL; Monocyte% 23.2 % (0-10); NRBC Flagged by Analyzer 0.9 % (0-5); Neutrophil # 0.47 X10^3/uL (2.7-7.7); Neutrophil % 20.2 % (47-70); POSITIVE DIFFERENTIAL YES; POSITIVE MORPHOLOGY YES; Platelet Count 184 K/mm3 (150-450); RBC Distribution Width CV 23.4 % (11.6-14.6); RBC Distribution Width SD 69.5 fl (35.1-43.9); Red Blood Count 3.83 M/mm3 (4.6-6.2); White Blood Count 2.3 K/mm3 (4.4-11.0)
[2024-02-16 06:53] LABS: Differential Indicated SCAN CRITERIA MET
[2024-02-16 07:30] LABS: ALB/GLOB Ratio 0.5 RATIO (0.9-2.4); AST(SGOT) 22 U/L (15-37); Alanine Aminotransfer ALT/SGPT 66 U/L (16-61); Albumin, Serum 1.3 g/dL (3.2-5.0); Alkaline Phosphatase 157 U/L (45-117); Anion Gap 6 (5-15); BUN 22 mg/dL (7-18); BUN/Creat Ratio 26.9 RATIO (10-20); Calcium,Total 7.6 mg/dL (8.5-10.1); Chloride 109 mmol/L (98-107); Creatinine, Serum 0.82 mg/dL (0.70-1.30); EST Glomerular Filtration Rate 106 mL/min (>60); Est Glom Filt Rate - Afr Amer 128 mL/min (>60); Estimated Creatinine Clearance 111.28 ml/min; Globulin 2.6 g/dL (2.2-4.2); Glucose 66 mg/dL (74-106); Potassium 4.2 mmol/L (3.5-5.1); Protein, Total 3.9 g/dL (6.4-8.2); Sodium Level 139 mmol/L (136-145)
[2024-02-16 07:35] LABS: Anisocytosis 2+; Differential Comment SCANNED
--- NOTE | 2024-02-16 07:59 | PN.HOSP_ITS ---
Reason for Visit Reason for Visit: Diagnoses Malignant neoplasm of ascending colon (02/16/24) Hypokalemia (02/16/24) Vomiting, unspecified (02/16/24) Subjective Subjective Patient is a 48-year-old gentleman with history of colon CA currently on neoadjuvant chemotherapy presented with intractable nausea and vomiting Objective Data Objective Data Vital Signs: Vital Signs Temp Pulse Resp BP Pulse Ox O2 Del Method 98.3 F 86 16 115/81 H 99 Room Air 02/16/24 06:15 02/16/24 06:15 02/16/24 06:15 02/16/24 06:15 02/16/24 06:15 02/16/24 06:15 Oxygen Delivery Method Room Air Weight: 73.2 kg Body Mass Index (BMI) 23.1 Intake & Output: Intake and Output for Last 24 Hours 02/14/24 02/15/24 02/16/24 23:59 23:59 23:59 Intake Total 1000 / 1000 700 / 700 Balance 1000 / 1000 700 / 700 Lab / Micro Data 02/16/24 06:26 02/16/24 06:26 Labs: Laboratory Results - last 24 hr 02/15/24 22:50: WBC 1.6 L, RBC 4.36 L, Hgb 11.3 L, Hct 35.6 L, MCV 81.7, MCH 25.9 L, MCHC 31.7 L, RDW Std Deviation 67.1 H, RDW Coeff of Brenden 23.3 H, Plt Count 184, MPV 10.7, Neut % (Auto) Not Reportable, Absolute Neuts (auto) 0.6 L, Absolute Lymphs (auto) 0.51 L, Total Counted 50, Neutrophils % (Manual) 36 L, Lymphocytes % (Manual) 32, Monocytes % (Manual) 26 H, Myelocytes % 2 H, Other Cells % 4, Diff Path Review May , Platelet Estimate SLT DEC, Polychromasia 1+, Hypochromasia 1+, Anisocytosis 1+, Target Cells 1+, Tear Drop Cells 1+, Ovalocytes 1+, Bite Cells 1+, Sodium 139, Potassium 4.1, Chloride 106, Carbon Dioxide 27.0, Anion Gap 7, BUN 21 H, Creatinine 0.93, Estim Creat Clear Calc 98.12, Est GFR (MDRD) Af Amer 110, Est GFR (MDRD) Non-Af 91, BUN/Creatinine Ratio 22.6 H, Glucose 88, Lactic Acid 1.4, Calcium 8.0 L, Total Bilirubin 0.90, AST 22, ALT 73 H, Alkaline Phosphatase 168 H, Troponin I High Sens 50, Total Protein 4.2 L, Albumin 1.4 L, Globulin 2.8, Albumin/Globulin Ratio 0.5 L, Lipase < 10 L 02/16/24 00:58: Troponin I High Sens 55 02/16/24 06:26: WBC 2.3 L, RBC 3.83 L, Hgb 10.1 L, Hct 31.8 L, MCV 83.0, MCH 26.4 L, MCHC 31.8 L, RDW Std Deviation 69.5 H, RDW Coeff of Brenden 23.4 H, Plt Count 184, MPV 10.6, Immature Gran % (Auto) 3.400 H, Neut % (Auto) 20.2 L, Lymph % (Auto) 52.8 H, [place] % (Auto) 23.2 H, Eos % (Auto) 0.0, Baso % (Auto) 0.4, A bsolute Neuts (auto) 0.5 L, Absolute Lymphs (auto) 1.23, Nucleated RBC % 0.9, Differential Comment SCANNED, Anisocytosis 2+, Sodium 139, Potassium 4.2, C hloride 109 H, Carbon Dioxide 25.0, Anion Gap 6, BUN 22 H, Creatinine 0.82, Estim Creat Clear Calc 111.28, Est GFR (MDRD) Af Amer 128, Est GFR (MDRD) Non-Af 106, BUN/Creatinine Ratio 26.9 H, Glucose 66 L, Calcium 7.6 L, Total Bilirubin 0.80, AST 22, ALT 66 H, Alkaline Phosphatase 157 H, Total Protein 3.9 L, Albumin 1.3 L, Globulin 2.6, Albumin/Globulin Ratio 0.5 L Micro: Microbiology 02/15/24 22:49 Mucosa - Nose SARS-CoV-2, Influenza & RSV (PCR) - Final Radiography Diagnostic Testing: Radiology Impression Abdomen/Pelvis CT 02/15/24 22:17 IMPRESSION: 1. Focal irregular wall thickening consistent with the history of colon cancer at the hepatic flexure of the colon, with a possible fistula connecting to the second portion of the duodenum. 2. Some wall thickening/inflammation involving the distal small bowel. This may indicate an infectious or inflammatory enteritis. 3. Tiny pleural effusions. 4. Fatty infiltration of the liver. Electronically Signed: Omar Felix MD at 0:19 EDT , Chest X-Ray 02/15/24 23:23 IMPRESSION: No acute findings in the chest. Electronically Signed: Omar Felix MD at 0:01 EDT , Physical Exam Narrative GENERAL: Patient appears ill looking HEENT: Atraumatic; normocephalic EYES; Anicteric, Normal Conjunctiva NECK; supple, normal thyroid, RESPIRATORY: Diminished to auscultation CARDIOVASCULAR: Regular S1 S2, GI: soft, normoactive bowel sounds, : No Renal angle tenderness; EXTREMITIES: No edema, no clubbing, MUSCULOSKELETAL: no muscle wasting NEURO: Awake; no lateralizing signs. SKIN: No Rash PSYCH; Flat affect Assessment & Plan Assessment/Plan (1) Vomiting: QUALIFIERS: Nausea presence: unspecified Vomiting type: u nspecified Qualified Code(s): R11.10 - Vomiting, unspecified (2) Colon cancer: QUALIFIERS: Colon location: ascending Qualified Code(s): C18.2 - Malignant neoplasm of ascending colon (3) Hypokalemia: PLAN: Plan Patient is a 48-year-old gentleman with history of colon CA currently on neoadjuvant chemotherapy presented with intractable nausea and vomiting 1. Intractable nausea vomiting ? Suspected to be secondary to side effect of patient chemo admitted to regular nursing floor for symptom management 2. Colon CA ? Currently on neoadjuvant chemotherapy with FOLFOX. Patient is followed by Dr. Caruso as outpatient 3. Hypokalemia -Corrected per protocol 4. DVT prophylaxis ? Subcu heparin Charges/Coding Visit Charges Inpatient E&M: 74312 Subs Hosp L2
[2024-02-16] MEDS: Metoclopramide 10 MG/2 ML Vial 5 MG IV ×2 (10:56→17:51)
[2024-02-16] MEDS: Enoxaparin 40 MG/0.4 ML Syringe SC (11:01)
[2024-02-16] MEDS: Pantoprazole Sodium 20 MG Tablet PO (11:01)
[2024-02-16 14:42] LABS: Pathologist Review Reviewed
[2024-02-16 15:05] LABS: Red Blood Cells-Urine 0 SEEN /hpf (0-5); Squamous Epithelial Cells - UA 0 SEEN /hpf (0-5)
[2024-02-16 15:11] LABS: Color, Urine Amber (Yellow); Glucose, Dipstick Normal (Normal); Ketone-Dipstick 50 mg/dl (Negative); Leukocyte Esterase-Dipstick 25 /ul (Negative); Nitrite-Dipstick Positive (Negative); Occult Blood-Urine Negative /ul (Negative); Protein-Dipstick 30 mg/dl (Negative); Urine Clarity Sl. Cloudy (Clear); Urine Urobilinogen 12 mg/dl (Normal)
[2024-02-16 15:35] LABS: Urine Bilirubin Dipstick 3 mg/dL (Negative)
[2024-02-16 15:48] LABS: Bacteria 2+ /hpf (None Seen); Calcium Oxalate Crystals Ur 1+ /hpf (<or=2+); White Blood Cells 0-5 SEEN /hpf (0-5); Yeast-Urine RARE /hpf (None Seen)
[2024-02-16 15:49] LABS: Mucous, Urine RARE /hpf (<or=2+)
--- NOTE | 2024-02-16 17:49 | ONC.CONSULT ---
Assessment & Plan Assessment/Plan (1) Colon cancer: Status: Acute Code(s): C18.9 - Malignant neoplasm of colon, unspecified Qualifiers: Colon location: ascending Qualified Code(s): C18.2 - Malignant neoplasm of ascending colon Plan: Ascending colon ca, nearly obstructing at the time of diagnosis presently on neoadjuvant chemotherapy with FOLFOX. Cycle 5 was given on 02/02/24. Images from CT A/P obtained yesterday at [facility] have been pushed to his surgeon, Dr. Cardenas at [facility]. Awaiting his response on pursuing colectomy now vs. continuing last cycle of neoadjuvant FOLFOX. High risk for VTE given malignancy and immobility. Chemical prophylaxis. (2) Vomiting: Status: Acute Code(s): R11.10 - Vomiting, unspecified Qualifiers: Nausea presence: unspecified Vomiting type: unspecified Qualified Code(s): R11.10 - Vomiting, unspecified Plan: Multifactorial, CINV, r/t constipation and partially obstructing colonic tumor. For now continue with current antiemetics. Encouraged sips Consider discontinuing Reglan. Replace with compazine. (3) Drug induced neutropenia: Status: Acute Code(s): D70.2 - Other drug-induced agranulocytosis Plan: As evidenced by ANC 500 today. Complicates care. Allow time for bone marrow recovery. Neutropenic precautions reviewed with the patient. HPI Consult Data Date of Service:: 02/17/24 PCP / Referring Provider: Dr. Shawna Mccormick MD Attending: Dr. Jay Ng MD Chief Complaint Chief Complaint: colon ca on treatment History of Present Illness History of Present Illness: Mr. Chaves is a 48 y.o.man who underwent lap cholecystectomy about November 2023. He developed abdominal pain, CT scan of the abdomen and pelvis with IV contrast on 11/20/2023 showed inflammatory thickening of the descending duodenum against adjacent hepatic flexure of colon with apparent duodenal colonic fistula and right renal pelvis stone. He was transferred to [facility]. 11/24/23 EGD reportedly showed fistula opening into the right side of the colon with ulcerating mass and almost complete obstruction and colonoscopy same day reported on diminutive polyp in the transverse colon (tubular adenoma) and malignant completely obstructing tumor in the ascending colon. Pathology of which returned positive for invasive moderately differentiated adenocarcinoma, intact nuclear expression of MSI. Stomach biopsy showed mild chronic inactive gastritis. He went on to have an upper GI with small bowel follow-through which did not show direct visualization of fistula between the colon and duodenum. The CEA was 1.2 on 11/22/2023. He was seen by colorectal surgeon and surgical oncologist at [facility], discussed at the tumor board and neoadjuvant chemotherapy was suggested because of the bulky colonic tumor. Began neoadjuvant chemotherapy with FOLFOX on 12/08/2023. Got cycle 2 on 12/22/23, cycle 3 on 01/05/24. Reported severe nausea and vomiting on 01/12/24. CT A/P with IV contrast demonstrated narrowing of the bowel lumen with softi tissue mass in the hepatic flexure of the colon and dilated fluid-filled loops of bowel proximally. Symptoms improved with bowel rest. Received cycle 4 on 01/19/24 and cycle 5 on 02/02/24 Interval History Interval History: Mr. Chaves presented to [facility] ED on 02/15/24 with c/o nausea and vomiting x 1 week. He was found to be mildly tachycardic with a blood pressure of 90/72. Labs revealed neutropenia, ANC 600, and mild anemia, creatinine unchanged, BUN slightly elevated at 21, no electrolyte abnormalities were identified. He was subsequently admitted for IV hydration and intravenous antiemetics. Upon entering the room, patient is lying on left side with eyes closed, father at the bedside. States he has been able to take sips, produced a loose BM today at 1500. This was the first BM he has produced since 02/11/24. Advanced Directives Power of [employer]er: No Living Will: No [facility] Medical History (Updated 02/16/24 @ 18:03 by Nicolasa Walton VICE PRESIDENT SAFETY, VICE PRESIDENT SAFETY-C) Drug induced neutropenia Malnutrition Hypokalemia Abdominal pain Hypotension CINV (chemotherapy-induced nausea and vomiting) Acid reflux Encounter for education Iron deficiency anemia Abnormal colonoscopy Port-A-Cath in place Colon cancer Diabetes HTN (hypertension) Umbilical hernia Fistula Home Medications ?Medication ?Instructions ?Recorded ?Last Taken ?Type lidocaine 4 % topical patch 1 patch topical DAILY PRN 12/01/23 Unknown History (AsperFlex (lidocaine)) lidocaine-prilocaine 2.5 %-2.5 % 1 applic topical ONCE PRN port 12/03/23 Unknown Rx topical cream access 30 days #30 grams ondansetron 4 mg disintegrating 4 mg PO Q8H PRN nausea and 12/03/23 Unknown Rx tablet vomiting #30 tabs prochlorperazine maleate 10 mg 10 mg PO Q6H PRN nausea and 12/24/23 Unknown Rx tablet vomiting #30 tabs ondansetron 8 mg disintegrating 8 mg PO Q8H PRN nausea and 02/02/24 Unknown Rx tablet vomiting #30 tabs pantoprazole 20 mg tablet,delayed 20 mg PO QDAY #30 tabs 02/02/24 Unknown Rx release tramadol 50 mg tablet 50 mg PO QDAY PRN pain 02/02/24 Unknown History Allergy/AdvReac Type Severity Reaction Status Date / Time No Known Allergies Allergy Verified 02/15/24 20:45 Family History Uncle Cancer Father Cancer renal Heart disease Surgical History H/O hernia repair H/O right knee surgery History of esophagogastroduodenoscopy (EGD) Hx of cholecystectomy Social History household members: family housing: house Smoking Status: Current every day smoker tobacco type: cigarettes Tobacco: How many years used: 30 alcohol intake: never substance use type: does not use ROS Constitutional Constitutional: Reports weakness; Denies chills or fever(s) Eyes Eyes: Reports systems reviewed and no addt'l complaints, except as documented ENT HEENT: Denies abnormal hearing Respiratory/Chest Respiratory/Chest: Denies shortness of breath at rest Gastrointestinal Gastrointestinal: Reports abdominal pain, nausea and vomiting Genitourinary Genitourinary: Denies dysuria Neurologic Neurologic: Denies focal weakness, frequent falls, headache(s), numbness or tingling Psychiatric Psychiatric: Denies anxiety Physical Exam Narrative ECOG 1 Const alert and oriented x3 General Appearance: ill appearing Positive for chronically and appears older than stated age HEENT normocephalic Eyes no scleral icterus Chest Chest Narrative: + Port R IC area Resp normal respiratory effort and clear to auscultation bilaterally Cardio regular rate, regular rhythm, S1 normal heart sound and S2 normal heart sound GI normal to inspection, nondistended, normoactive bowel sounds GI Narrative: +abdominal scars Palpation: tender LLQ, RLQ and RUQ Extremity no clubbing, cyanosis or edema Psych mental status grossly normal Vital Signs Temperature 100 F H 02/16/24 17:45 Temperature Source Temporal 02/16/24 17:45 Pulse Rate 97 02/16/24 17:45 Respiratory Rate 16 02/16/24 17:45 Respiratory Effort Normal, Non-Labored 02/16/24 10:00 Respiratory Depth Normal 02/16/24 10:00 Respiratory Pattern Normal 02/16/24 10:00 Blood Pressure 111/74 02/16/24 17:45 Blood Pressure Mean 86 02/16/24 17:45 Blood Pressure Source Monitor 02/16/24 17:45 Blood Pressure Position Semi-Fowlers 02/16/24 17:45 Blood Pressure Location Right Arm 02/16/24 17:45 Pulse Ox 96 02/16/24 17:45 Oxygen Delivery Method Room Air 02/16/24 17:45 Laboratory Results - last 24 hr 02/15/24 22:50: WBC 1.6 L, RBC 4.36 L, Hgb 11.3 L, Hct 35.6 L, MCV 81.7, MCH 25.9 L, MCHC 31.7 L, RDW Std Deviation 67.1 H, RDW Coeff of Brenden 23.3 H, Plt Count 184, MPV 10.7, Neut % (Auto) Not Reportable, Absolute Neuts (auto) 0.6 L, Absolute Lymphs (auto) 0.51 L, Total Counted 50, Neutrophils % (Manual) 36 L, Lymphocytes % (Manual) 32, Monocytes % (Manual) 26 H, Myelocytes % 2 H, Other Cells % 4, Diff Path Review Reviewed, Platelet Estimate SLT DEC, Polychromasia 1+, Hypochromasia 1+, Anisocytosis 1+, Target Cells 1+, Tear Drop Cells 1+, Ovalocytes 1+, Bite Cells 1+, Sodium 139, Potassium 4.1, Chloride 106, Carbon Dioxide 27.0, Anion Gap 7, BUN 21 H, Creatinine 0.93, Estim Creat Clear Calc 98.12, Est GFR (MDRD) Af Amer 110, Est GFR (MDRD) Non-Af 91, BUN/Creatinine Ratio 22.6 H, Glucose 88, Lactic Acid 1.4, Calcium 8.0 L, Total Bilirubin 0.90, AST 22, ALT 73 H, Alkaline Phosphatase 168 H, Troponin I High Sens 50, Total Protein 4.2 L, Albumin 1.4 L, Globulin 2.8, Albumin/Globulin Ratio 0.5 L, Lipase < 10 L 02/16/24 00:58: Troponin I High Sens 55 02/16/24 06:26: WBC 2.3 L, RBC 3.83 L, Hgb 10.1 L, Hct 31.8 L, MCV 83.0, MCH 26.4 L, MCHC 31.8 L, RDW Std Deviation 69.5 H, RDW Coeff of Brenden 23.4 H, Plt Count 184, MPV 10.6, Immature Gran % (Auto) 3.400 H, Neut % (Auto) 20.2 L, Lymph % (Auto) 52.8 H, [place] % (Auto) 23.2 H, Eos % (Auto) 0.0, Baso % (Auto) 0.4, Absolute Neuts (auto) 0.5 L, Absolute Lymphs (auto) 1.23, Nucleated RBC % 0.9, Differential Comment SCANNED, Anisocytosis 2+, Sodium 139, Potassium 4.2, Chloride 109 H, Carbon Dioxide 25.0, Anion Gap 6, BUN 22 H, Creatinine 0.82, Estim Creat Clear Calc 111.28, Est GFR (MDRD) Af Amer 128, Est GFR (MDRD) Non-Af 106, BUN/Creatinine Ratio 26.9 H, Glucose 66 L, Calcium 7.6 L, Total Bilirubin 0.80, AST 22, ALT 66 H, Alkaline Phosphatase 157 H, Total Protein 3.9 L, Albumin 1.3 L, Globulin 2.6, Albumin/Globulin Ratio 0.5 L 02/16/24 14:47: Urine Color Jeanne, Urine Clarity Sl. Cloudy, Urine pH 7.0, Ur Specific [place] 1.010, Urine Protein 30 H, Urine Glucose (UA) Normal, Urine Ketones 50 H, Urine Occult Blood Negative, Urine Nitrite Positive H, Urine Bilirubin 3 H, Urine Urobilinogen 12 H, Ur Leukocyte Esterase 25 H, Urine RBC 0 SEEN, Urine WBC 0-5 SEEN, Ur Squamous Epith Cells 0 SEEN, Calcium Oxalate Crystal 1+, Urine Bacteria 2+, Urine Mucus RARE, Urine Yeast RARE Microbiology 02/15/24 22:49 Mucosa - Nose SARS-CoV-2, Influenza & RSV (PCR) - Final Diagnostic Data Abdomen/Pelvis CT 02/15/24 22:17 IMPRESSION: 1. Focal irregular wall thickening consistent with the history of colon cancer at the hepatic flexure of the colon, with a possible fistula connecting to the second portion of the duodenum. 2. Some wall thickening/inflammation involving the distal small bowel. This may indicate an infectious or inflammatory enteritis. 3. Tiny pleural effusions. 4. Fatty infiltration of the liver. Electronically Signed: Omar Felix MD at 0:19 EDT , Chest X-Ray 02/15/24 23:23 IMPRESSION: No acute findings in the chest. Electronically Signed: Omar Felix MD at 0:01 EDT ,
[2024-02-16] MEDS: 0.9% Saline Lock 10 ML Syringe IV (17:52)
[2024-02-16] MEDS: traMADol 50 MG Tablet PO (21:19)
[2024-02-17 05:00] VITALS: BP 95/67; PULSE 85; RESP 14; TEMP 36.7; O2SAT 97
[2024-02-17] MEDS: Metoclopramide 10 MG/2 ML Vial 5 MG IV ×2 (06:21→12:17)
[2024-02-17] MEDS: 0.9% Saline Lock 10 ML Syringe IV ×2 (06:21→12:17)
[2024-02-17] MEDS: traMADol 50 MG Tablet PO (06:22)
--- NOTE | 2024-02-17 07:41 | DS.PCM_ITS ---
Providers Date of Admission: 02/16/24 Date of Discharge: 02/17/24 Primary Care Physician: Dr. Shawna Mccormick MD Consultations 02/16/24 01:38 Consult: Oncology/Hematology Routine Consulting Provider: [facility] ([facility]) Reason for Consult: cancer patient due for chemo tomorrow am let [facility] know he is in EMERGENT Consult: No MD Notified: Yes Date Notified: 02/16/24 Time Notified: 08:55 Method of Notification: office Reason For Visit: INTRACTABLE NAUSEA & VOMITING Diagnosis Discharge Diagnosis (1) Colon cancer: Status: Acute Code(s): C18.9 - Malignant neoplasm of colon, unspecified Qualifiers: Colon location: ascending Qualified Code(s): C18.2 - Malignant neoplasm of ascending colon (2) Vomiting: Status: Acute Code(s): R11.10 - Vomiting, unspecified Qualifiers: Vomiting type: unspecified Nausea presence: unspecified Qualified Code(s): R11.10 - Vomiting, unspecified (3) Drug induced neutropenia: Status: Acute Code(s): D70.2 - Other drug-induced agranulocytosis Plan Patient is a 48-year-old gentleman with history of colon CA currently on neoadjuvant chemotherapy presented with intractable nausea and vomiting 1. Intractable nausea vomiting ? Suspected to be secondary to side effect of patient chemo admitted to regular nursing floor for symptom management ? Patient symptoms did improve plan is for patient to follow-up with oncology regarding ongoing care 2. Colon CA ? Currently on neoadjuvant chemotherapy with FOLFOX. Patient is followed by Dr. Caruso as outpatient 3. Hypokalemia -Corrected per protocol 4. DVT prophylaxis ? Subcu heparin Medications at Discharge Home Medications lidocaine 4 % topical patch (AsperFlex (lidocaine)) 1 patch topical DAILY PRN 12/01/23 lidocaine-prilocaine 2.5 %-2.5 % topical cream 1 applic topical ONCE PRN port access 30 days #30 grams 12/03/23 ondansetron 4 mg disintegrating tablet 4 mg PO Q8H PRN nausea and vomiting #30 tabs 12/03/23 prochlorperazine maleate 10 mg tablet 10 mg PO Q6H PRN nausea and vomiting #30 tabs 12/24/23 ondansetron 8 mg disintegrating tablet 8 mg PO Q8H PRN nausea and vomiting #30 tabs 02/02/24 pantoprazole 20 mg tablet,delayed release 20 mg PO QDAY #30 tabs 02/02/24 tramadol 50 mg tablet 50 mg PO QDAY PRN pain 02/02/24 Hospital Course Summary of Care Provided Minutes Spent on Discharge: 32 Physical Exam Narrative GENERAL: Patient appears ill looking HEENT: Atraumatic; normocephalic EYES; Anicteric, Normal Conjunctiva NECK; supple, normal thyroid, RESPIRATORY: Diminished to auscultation CARDIOVASCULAR: Regular S1 S2, GI: soft, normoactive bowel sounds, : No Renal angle tenderness; EXTREMITIES: No edema, no clubbing, MUSCULOSKELETAL: no muscle wasting NEURO: Awake; no lateralizing signs. SKIN: No Rash PSYCH; Flat affect Medical Records Data Medical Nutrition Assessment Dietitian: Malnutrition Criteria Met Start: 02/16/24 11:34 Freq: Status: Active Protocol: Document 02/16/24 11:34 LO (Rec: 02/16/24 11:34 [id number]) Nutrition Malnutrition Evidence of Malnutrition Exists Yes Malnutrition (severe): Chronic Evidenced By Suboptimal Energy Intake ( Moderate),Weight Loss (Severe) ,Physical Changes (Severe) Clinical Problem Chronic Disease or Condition Related Malnutrition Etiology severe related to malignant neoplasm of ascending colon Signs/Symptoms as evidenced by PO intakes meeting <50% of estimated nutrition needs for >3 months, 94.6lb (36.9%) in ~10.5 months, and severe temporal/ orbial/clavicle fat and muscle loss Status Active Problem Recommendation Dietitian Recommendations/Changes Spoke with Dr. Ng about changing pt to Full Liquid diet, ok with changing this . RD will order 120mL ensure clear 4x daily with medpass to provide supplemental energy Weight / BMI Weight Weight: 73.2 kg Body Mass Index (BMI) 23.1 ABG / Lab / Microbiology Data 02/16/24 06:26 02/16/24 06:26 Laboratory: Laboratory Results - last 24 hr 02/15/24 22:50: Diff Path Review Reviewed 02/16/24 14:47: Urine Color Jeanne, Urine Clarity Sl. Cloudy, Urine pH 7.0, Ur Specific [place] 1.010, Urine Protein 30 H, Urine Glucose (UA) Normal, Urine Ketones 50 H, Urine Occult Blood Negative, Urine Nitrite Positive H, Urine Bilirubin 3 H, Urine Urobilinogen 12 H, Ur Leukocyte Esterase 25 H, Urine RBC 0 SEEN, Urine WBC 0-5 SEEN, Ur Squamous Epith Cells 0 SEEN, Calcium Oxalate Crystal 1+, Urine Bacteria 2+, Urine Mucus RARE, Urine Yeast RARE Microbiology: Microbiology 02/15/24 22:49 Mucosa - Nose SARS-CoV-2, Influenza & RSV (PCR) - Final D/C Instructions Discharge Diet: No restrictions Discharge Activity: Return to Normal Activity Call your doctor if you observe: Fever of 101 or Higher, Shortness of breath, Fainting spells and Chest pain Meaningful Use Info Meaningful Use Meaningful Use Diagnoses (Choose all that apply): None applicable Ischemic Stroke Statin Dosing Therapy Reference: STATIN DOSE THERAPY REFERENCE: * Patients > 75 years receive moderate or high dose statin therapy. * Patients 75 years or YOUNGER should receive HIGH intensity statin dose unless contraindicated. You will be required to document reason for non-treatment if statin daily dose does not meet guidelines. HIGH DOSE STATIN THERAPY DAILY Atorvastatin > than or = to 40 mg Rosuvastatin > than or = to 20 mg Amlodipine + Atorvastatin > than or = to 2.5/40 mg Ezetimibe + Simvastatin 10/80 mg Simvastatin 80mg Discharge Plan Admission Admit Date/Time: 02/16/24 01:05 Attending Provider: Jay Ng Primary Care Provider: Shawna Mccormick Consulting Providers: Raphael Castro; Jay Solorzano; Hiro Caruso; Luiz Aleman; Nilson Blackwood; Smith Zimmerman; Sander Yates; Ricky Herrera; Nicolasa Walton EMR SPECIALIST Discharge Orders/Prescriptions Prescriptions: Continued lidocaine [AsperFlex (lidocaine)] 4 % adhesive patch,medicated 1 patch topical DAILY PRN lidocaine-prilocaine 2.5-2.5 % cream 1 applic topical ONCE PRN (Reason: port access) 30 Days Qty: 30 2RF ondansetron 4 mg tablet,disintegrating 4 mg PO Q8H PRN (Reason: nausea and vomiting) Qty: 30 0RF prochlorperazine maleate 10 mg tablet 10 mg PO Q6H PRN (Reason: nausea and vomiting) Qty: 30 2RF tramadol 50 mg tablet 50 mg PO QDAY PRN (Reason: pain) pantoprazole 20 mg tablet,delayed release (DR/EC) 20 mg PO QDAY Qty: 30 0RF ondansetron 8 mg tablet,disintegrating 8 mg PO Q8H PRN (Reason: nausea and vomiting) Qty: 30 2RF Referrals / Follow Up: Shawna Mccormick MD [Primary Care Provider] - Within 1 Week Nicolasa Walton NP, EMR SPECIALIST-C [Med Staff - [facility] Practice Prof] - In 1 Day Disposition Disposition (needs filled in before D/C Order can be placed): Home, Self Care Charges/Coding Visit Charges Inpatient E&M: 90245 Disch Hosp >30min
[2024-02-17 09:30] VITALS: BP 99/75; PULSE 106; RESP 18; TEMP 36.6; O2SAT 95
[2024-02-17] MEDS: Ensure Clear 120 ML Liquid PO (09:32)
[2024-02-17] MEDS: Enoxaparin 40 MG/0.4 ML Syringe SC (09:32)
[2024-02-17] MEDS: Pantoprazole Sodium 20 MG Tablet PO (09:32)
--- NOTE | 2024-02-17 09:45 | CASEMGMT ---
FRANCO SOSA NOTE: Discharge order is in. FRANCO SOSA to room. Pt sitting up on couch. Introduced self and role. Pt states he lives w/his dad, who will be taking him home today. He reports being independent w/most self care, such as bathing and dressing, but his dad does assist him in/out of home and also up from the chair, if needed, if he is having any weakness/difficulty getting up. Dad also does most home mgnt tasks. Pt denies wanting any HHC or OP therapy, states symptoms are mostly from chemo. He states he has a pedal bike outside he can use, if he wishes. He has considered doing OP therapy @ [facility], but declines wanting script for this at this time. He was made aware to f/u with PCP if he decides he wishes to do this in the future. He denies having any discharge needs/concerns. He states he has all medications needed and denies needing any DME. Dain ESCAMILLA RN, CM
== END 2024-02-17 12:37 | disposition home or self-care (01) ==
LOC: ED 22:11 → MS3 02-16 01:44
PROVIDERS: Admitting Provider Family Medicine; Emergency Provider Surgery; PCP Student in an Organized Health Care Education/Training Program; Visit Provider Internal Medicine
DX: E86.0 Dehydration (principal); C18.2 Malignant neoplasm of ascending colon; E11.9 Type 2 diabetes mellitus without complications; E87.6 Hypokalemia; T45.1X5A Adverse effect of antineoplastic and immunosuppressive drugs, initial encounter; D64.81 Anemia due to antineoplastic chemotherapy; I10 Essential (primary) hypertension; F17.210 Nicotine dependence, cigarettes, uncomplicated; D70.2 Other drug-induced agranulocytosis; R11.2 Nausea with vomiting, unspecified; D50.9 Iron deficiency anemia, unspecified; Z79.899 Other long term (current) drug therapy; E44.0 Moderate protein-calorie malnutrition; Z68.23 Body mass index [BMI] 23.0-23.9, adult
CPT/HCPCS: 36591; 71046; 74177; 80053; 81001; 83605; 83690; 84484; 85025; 87631; 93005; 96361; 96372; 96374; 96375; 96376; 97802; 99221; 99284; Q9967; A4216; G0378